=== PATIENT | female | born 1940 | race Caucasian/White ===

== ENCOUNTER → 2017-09-15 | Outpatient (CLI) | payer OTHER ==
[2017-09-15 09:13] LABS: CREATININE, SERUM 2.7 mg/dL (0.57-1.11)
--- NOTE | 2017-09-15 11:54 | Diagnostic Imaging Report ---
MR ABDOMEN WITHOUT CONTRAST CPT code: 29562 Indications: Malignant neoplasm of kidney Technique: Multiplanar, multi-sequential MRI of the abdomen was performed dedicated to the kidneys. No gadolinium was administered. Findings: Images are mildly motion degraded. Liver: Normal T1 and T2 signal. A cyst in segment 8/5 measures 1.9 x 1.3 cm with lobulated borders. A subcentimeter cyst in segment 4 measures 6 mm. Gallbladder: Absent Biliary tree: No intrahepatic biliary ductal dilatation. Common bile duct measures approximately 8 mm in diameter without intraluminal filling defect. Pancreas: Normal T1 signal. No mass or ductal dilatation Spleen: Normal in attenuation and size without mass Adrenal glands: No evidence for mass. Kidneys: Right kidney: No increased T1 signal lesions. Low T2 signal solid mass in the medial aspect of the upper pole measures 1.4 x 1.1 cm. Multiple high T2, low T1 signal cysts throughout the cortex have the appearance of cysts. The largest in the lower pole and measures 2.0 x 1.5 cm with a small amount of protein/hemorrhage. No hydronephrosis. Left kidney: Low T2, high T1 signal lesion in the lower pole measures 1.6 x 1.4 x 2.2 cm. There are multiple high T2, low T1 signal cysts, the largest in the upper pole measuring 2.3 x 2.3 cm with lobulated contours. A peripelvic cyst in the lower pole measures 1.1 x 1.9 cm. No hydronephrosis. Lymph nodes: No enlarged abdominal or retroperitoneal lymph nodes. Bowel: Stomach and visualized portions of the small bowel and large bowel are normal in diameter with normal wall thickness. Vasculature: Aorta and IVC are normal in diameter. No free fluid or fluid collection. Lung bases: Visualized portions are unremarkable. Bones: Mild levoscoliosis of the lower lumbar spine with superimposed endplate degenerative change. Normal marrow signal. No focal osseous lesions. There is blooming artifact posterior to the spinous processes of the lumbar spine suggestive of surgery. IMPRESSION: 1. Compromised study due to motion degradation. 2. Multiple left renal cysts. Low T2, high T1 signal mass in the lower pole is likely a proteinaceous/hemorrhagic cyst. Recommend correlation with CT and ultrasound. 3. Multiple right renal cysts. Low T2, low T1 signal mass in the upper pole is concerning for neoplasm. Recommend correlation with CT and ultrasound. 4. Hepatic cysts. Signed by: Dr. Susan Ralph MD on 09/15/2017 11:51 AM
== END ==
LOC: MRI 08:08
PROVIDERS: ATTEND Urology
DX: C64.9 Malignant neoplasm of unspecified kidney, except renal pelvis (principal)
CPT/HCPCS: 36415; 74181; 82565; 84520

== ENCOUNTER → 2017-12-15 | Outpatient (CLI) | payer OTHER ==
--- NOTE | 2017-12-15 11:57 | Diagnostic Imaging Report ---
PROCEDURE:US RETROPERITONEAL ( KIDNEY ). COMPARISON:MRI abdomen 09/15/2017. INDICATIONS:UTI TECHNIQUE: Buitrago-scale and color sonographic images of the bilateral kidneys and bladder where obtained in transverse and longitudinal planes. FINDINGS: RIGHT KIDNEY: 9.7 cm in length, cortical thickness 1.2 cm. Cysts: Lower pole cyst measures 2 x 2 0.1 x 1.6 cm. Solid masses: Hypoechoic lesion in the right upper pole presumably corresponds to the low T2 signal lesion described on the comparison MRI. The lesion measures 1.5 x 1.1 x 1.5 cm, without discrete internal vascularity. Stones: None Hydronephrosis: None Echogenicity: Normal renal cortical echogenicity. LEFT KIDNEY: 10.3 cm in length, cortical thickness 1.5 cm. Cysts: Upper pole cyst measures 2.8 x 1.5 x 1.8 cm. A peripelvic cyst measures 1.3 x 1.8 cm, and contains hyperechoic material there in, which may reflect layering calcium. Solid masses: 2.1 x 1.5 x 1.3 cm lesion of mixed echogenicity projecting from the lower pole of the left kidney, with an internal hyperechoic focus without shadowing. Stones: None Hydronephrosis: None Echogenicity: Normal renal cortical echogenicity. Bladder: Unremarkable, right and left ureteral jets are identified. CONCLUSION: Bilateral renal cysts, with indeterminate hypoechoic lesion in the upper pole of the right kidney, and a lesion of mixed echogenicity projecting from the lower pole of the left kidney, corresponding to findings on MRI of the abdomen 09/15/2017. Further characterization with contrast-enhanced CT or MRI of the abdomen (renal mass protocol) is suggested. If a contrast enhanced study is not feasible due to renal function, short-term followup (3 months) noncontrast MRI of the abdomen is suggested. Dictated by: Juan Young M.D. on 12/15/2017 at 12:04 Electronically approved by: Juan Young M.D. on 12/15/2017 at 12:04
== END ==
LOC: US 09:50
PROVIDERS: ATTEND Urology
DX: N39.0 Urinary tract infection, site not specified (principal)
CPT/HCPCS: 76770